=== PATIENT | female | born 1995 | race American Indian/Alaskan Native ===

== ENCOUNTER 2020-11-06 09:00 | Emergency (ER) | payer SELFPAY ==
--- NOTE | 2020-11-06 10:44 | Emergency Department Report ---
ED General Adult HPI - General Chief complaint: Skin/Abscess/Foreign Body Stated complaint: SWOLLEN NECK/MOUTH PAIN Time Seen by Provider: 11/06/20 09:52 Source: patient Mode of arrival: Ambulatory Limitations: No Limitations - History of Present Illness Initial comments: 25-year-old female patient with history of recurrent sialoadenitis presents to the emergency department with complaints of left-sided jaw pain and purulent drainage in her mouth starting 1 week ago. Patient states symptoms are consistent with prior episodes of sialoadenitis. She has not been on antibiotics in approximately 1 year. She was under the care of an oral surgeon for this issue but she has been unable to get in touch with them. She has been using sialagogues and ibuprofen with limited relief. Denies fever, chills, dysphagia, voice changes, vomiting, cough, headache, neck stiffness. Denies all other complaints at this time. - Related Data Previous Rx's Medication Instructions Recorded Last Taken Type Naproxen 500 mg PO BID #20 tablet 11/06/20 Unknown Rx cephALEXin [Keflex] 500 mg PO QID 7 Days capsule 11/06/20 Unknown Rx Allergies Allergy/AdvReac Type Severity Reaction Status Date / Time shellfish derived Allergy Swelling Verified 11/06/20 09:07 ED Review of Systems ROS: Stated complaint: SWOLLEN NECK/MOUTH PAIN Other details as noted in HPI Other: GENERAL: Negative for fever. ENT: Positive for jaw pain and drainage. CARDIOVASCULAR: Negative for chest pain. PULMONARY: Negative for shortness of breath. GASTROINTESTINAL: Negative for abdominal pain. MUSCULOSKELETAL: Negative for back pain. NEUROLOGICAL: Negative for headache. INTEGUMENTARY: Negative for rash. ED Past Medical Hx - Past Medical History Previous Medical History?: No - Surgical History Past Surgical History?: No - Social History Smoking Status: Current Every Day Smoker Substance Use Type: None - Medications Home Medications: Home Medications Medication Instructions Recorded Confirmed Last Taken Type Naproxen 500 mg PO BID #20 tablet 11/06/20 Unknown Rx cephALEXin [Keflex] 500 mg PO QID 7 Days capsule 11/06/20 Unknown Rx ED Physical Exam - General Limitations: No Limitations - Other Other exam information: General: Awake, appropriately interactive, no acute distress. ENT: Tenderness to palpation along the distribution of the left submandibular gland with significant swelling. No fluctuance or overlying erythema. Small amount of purulent drainage noted to the sublingual area without evidence of periapical abscess. Uvula is midline and nonedematous. No tonsillar edema. Oral mucosa is moist. Sublingual, submental, and submandibular spaces all soft. No trismus. Patient is speaking in full sentences and handling secretions without difficulty. Neck: Supple. Full range of motion intact. See ENT. Cardiovascular: Normal peripheral perfusion. Pulmonary: No respiratory distress. Patient is speaking normally without use of accessory muscles. Skin: No apparent rashes or lesions. Neurological: No facial asymmetry. Speech is clear. Follows commands. Patient is alert and oriented. Musculoskeletal: Moves all four extremities spontaneously with normal range of motion. Psych: Cooperative. Appropriate mood and affect. ED Course Vital Signs 11/06/20 09:07 Temperature 98.2 F Pulse Rate 70 Blood Pressure 121/76 O2 Sat by Pulse 98 Oximetry ED Medical Decision Making - Medical Decision Making Differential diagnosis including but not limited to: Jose R's angina, sialoadenitis, parotitis, mumps, lymphoma, abscess Patient presents to the emergency department with complaints of painful swelling along the distribution of her left submandibular gland. States she has been noticing drainage from the inside of her mouth since the swelling worsened. She has been under the care of an oral surgeon for recurrent sialadenitis. States she attempted to get in touch with her oral surgeon this week but was unable to schedule an appointment. States her current symptoms are consistent with prior flareups. She has been using sialagogues with limited relief. She is not currently on antibiotics. Patient is requesting surgical intervention; asked if "we could just cut it out." It was explained to the patient that only a surgical subspecialist would be able to definitively manage this recurring issue. She is afebrile, vital signs are stable, no hypoxia, no respiratory distress, no trouble swallowing/speaking, no difficulty handling secretions. No clinical indication for further diagnostic work-up on an emergent basis at this time. Patient has been provided with a referral to otolaryngology and prescribed antibiotics/appropriate analgesics. Patient expressed understanding and is agreeable to plan of care. Strict return precautions provided. Critical care attestation.: If time is entered above; I have spent that time in minutes in the direct care of this critically ill patient, excluding procedure time. ED Disposition Clinical Impression: Acute recurrent sialoadenitis Disposition: TO HOME OR SELFCARE Is pt being admited?: No Does the pt Need Aspirin: No Condition: Stable Instructions: Salivary Gland Infection Additional Instructions: Take Tylenol every 4 hours as needed for pain. Take Naprosyn twice daily with food as needed for pain. Take Keflex with food as directed. Increase your dietary intake of probiotic rich foods while taking this medication. Continue using sialagogues as previously directed. Avoid antihistamine medications, which may worsen your symptoms. You must follow-up with ENT specialist for definitive management of this ongoing problem. See referral information below. Call today to schedule an appointment. Return to the emergency department immediately for new or worsening symptoms. Specifically, return to the emergency department immediately for fever, difficulty swallowing, difficulty breathing, neck stiffness, rash, or any other concerns. Prescriptions: cephALEXin [Keflex] 500 mg PO QID 7 Days capsule Naproxen 500 mg PO BID #20 tablet Referrals: FAMILIA MEDINA MD [Staff Physician] - 3-5 Days MÓNICA MUJICA MD [Staff Physician] - 3-5 Days NUBIA GUEVARA MD [Staff Physician] - 3-5 Days Time of Disposition: 10:50
== END 2020-11-06 10:58 | disposition home or self-care (01) ==
LOC: ED 09:00
CPT/HCPCS: 99282